=== PATIENT | female | born 1995 | race Caucasian/White ===

== ENCOUNTER 2023-11-11 22:31 | Emergency (ER) | payer OTHER, SELFPAY ==
[2023-11-11 22:37] VITALS: BP 115/76; PULSE 102; RESP 20; TEMP 36.5; O2SAT 100; BMI 35.0
--- NOTE | 2023-11-11 22:45 | ED_ITS ---
HPI - SOB/Dyspnea General Time Seen by Provider: 22:45 <Isela Bush MD - Last Filed: 11/12/23 00:02> Date Seen: 11/11/23 <Isela Bush MD - Last Filed: 11/12/23 00:02> Chief Complaint: Shortness of Breath/Dyspnea <Isela Bush MD - Last Filed: 11/12/23 00:02> Stated Complaint: Chest Pain/Shortness of breath <Isela Bush MD - Last Filed: 11/12/23 00:02> Time Seen by Provider: 11/11/23 22:32 <Isela Bush MD - Last Filed: 11/12/23 00:02> Source: patient and RN notes reviewed <Isela Bush MD - Last Filed: 11/12/23 00:02> Mode of arrival: ambulatory <Isela Bush MD - Last Filed: 11/12/23 00:02> Limitations: no limitations <Isela Bush MD - Last Filed: 11/12/23 00:02> History of Present Illness HPI Narrative: This 28-year-old female is coming in with shortness of breath and chest pressure. She noted maybe last Saturday, about 8 days ago started feeling short of breath. About a day later she started having some chest discomfort with it. There is a sense of pleuritic pain with deep breathing. She is getting winded sometimes even with just talking, certainly with any activity. She has woken up warm and sweaty almost every morning since this started, did have some of those symptoms prior to this however. No documented fever. She has had a little cough, does not think that she has had any upper respiratory infection. At the start of this, she thought she might be getting sick but then nothing more than the chest symptoms described happened. She feels more pressure on the chest lying flat, does get some relief sitting up. She is on a combined transdermal contraceptive. States there is no chance for . She does not have any history of blood clots prior. She did consult 2 facilities, all requested that she come to the ER for evaluation. <Isela Bush MD - Last Filed: 11/12/23 00:02> MD elicited complaint: shortness of breath and chest pain <Isela Bush MD - Last Filed: 11/12/23 00:02> Related Data Home Medications: Home Medications Medication Instructions Recorded Confirmed blood-glucose sensor (Dexcom G6 11/11/23 11/11/23 Sensor device) blood-glucose transmitter (Dexcom 11/11/23 11/11/23 G6 Transmitter device) clindamycin phosphate 1 % lotion topical 11/11/23 insulin lispro 100 unit/mL 0 - 50 unit subcut DAILY 11/11/23 11/11/23 subcutaneous solution insulin pump cart,automated,BT 11/11/23 11/11/23 (Omnipod 5 G6 Pods (Gen 5) subcutaneous cartridge) norelgestromin 150 mcg-e.estradiol 1 patch topical 11/11/23 35 mcg/24 hr weekly transderm patch (Zafemy) sulfacetamide sodium-sulfur 8 %-4 topical DAILY 11/11/23 % topical suspension tretinoin 0.05 % topical cream applic topical Q1D 11/11/23 <Isela Bush MD - Last Filed: 11/12/23 00:02> Allergies/Adverse Reactions: Allergies Allergy/AdvReac Type Severity Reaction Status Date / Time methylphenidate Allergy Intermediate Verified 11/11/23 22:35 [From Concerta] <Isela Bush MD - Last Filed: 11/12/23 00:02> Review of Systems Status of ROS: Reports: 6 or more systems reviewed and unremarkable except as noted in History and below <Isela Bush MD - Last Filed: 11/12/23 00:02> PFSH PFSH Social History: Social History Non-prescribed substance use: denies use <Isela Bush MD - Last Filed: 11/12/23 00:02> Exam Const: Vital Signs, click to edit/add: Vital Signs - 24 hr 11/11/23 22:37 11/11/23 23:13 11/11/23 23:15 Temperature 97.7 F Pulse Rate 99 Pulse Rate [Pulse Oximeter] 102 H Respiratory Rate 20 Blood Pressure 130/83 Blood Pressure [Ri ght Upper Arm] 115/76 Pulse Oximetry 100 99 Oxygen Delivery Me thod Room Air 11/11/23 23:29 Temperature Pulse Rate Pulse Rate [Pulse Oximeter] Respiratory Rate Blood Pressure Blood Pressure [Ri ght Upper Arm] Pulse Oximetry 96 Oxygen Delivery Me thod This 28-year-old female is alert, interactive, no apparent distress. Pupils equal round reactive, sclera clear, symmetrical facial function. Able to speak in complete sentences, no hoarseness. Neck is supple, no jugular vein dis tension, no cervical adenopathy, no thyromegaly masses or nodules. Lungs are clear, good air entry, no wheezing or crackles, no tachypnea. CV is slightly fast but regular, no murmur, normal S1-S2, no S3-S4. Abdomen is soft, nontender, no rebound or guarding, organomegaly. She has no lower extremity edema, no calf tenderness, was ambulatory into the ED of her own accord. Currently mildly tachycardic on presentation but absolutely no hypoxia, no elevated respiratory rate. <Isela Bush MD - Last Filed: 11/12/23 00:02> Vital Signs, click to edit/add: Vital Signs - 24 hr 11/11/23 22:37 11/11/23 23:13 11/11/23 23:15 Temperature 97.7 F Pulse Rate 99 Pulse Rate [Pulse Oximeter] 102 H Respiratory Rate 20 Blood Pressure 130/83 Blood Pressure [Ri ght Upper Arm] 115/76 Pulse Oximetry 100 99 Oxygen Delivery Me thod Room Air 11/11/23 23:29 Temperature Pulse Rate Pulse Rate [Pulse Oximeter] Respiratory Rate Blood Pressure Blood Pressure [Ri ght Upper Arm] Pulse Oximetry 96 Oxygen Delivery Me thod <Chris Romano DO - Last Filed: 11/12/23 01:08> Documenting provider has reviewed patient's vital signs: yes <Isela Bush MD - Last Filed: 11/12/23 00:02> Course Course ED Course: Have reviewed with Jorge Alberto that we certainly will look at her heart, it is doubtful that she is having any ischemic disease but will be considered. Pericarditis certainly is a possibility. Respiratory entities such as pulmonary emboli, possible underlying pulmonary infections are possible as well. Given that she is on a combined transdermal contraceptive, do need to proceed with CT imaging as she cannot rule out with PERC for pulmonary emboli do the contrace ptive use, mild tachycardia. Will get full complement of labs. She will be on cardiac monitoring pulse oximetry, will get baseline EKG as well. <Isela Bush MD - Last Filed: 11/12/23 00:02> Vital Signs Vital signs: Initial Vital Signs Temperature 97.7 F 11/11/23 22:37 Temperature Source Temporal Artery Scan 11/11/23 22:37 Pulse Rate 102 H 11/11/23 22:37 Respiratory Rate 20 11/11/23 22:37 Blood Pressure 115/76 11/11/23 22:37 Blood Pressure Mean 89 11/11/23 22:37 Blood Pressure Position Sitting 11/11/23 22:37 Pulse Oximetry 100 11/11/23 22:37 Oxygen Delivery Method Room Air 11/11/23 22:37 Vital Signs Temperature 97.7 F 11/11/23 22:37 Pulse Rate 102 H 11/11/23 22:37 Respiratory Rate 20 11/11/23 22:37 Blood Pressure 115/76 11/11/23 22:37 Pulse Oximetry 100 11/11/23 22:37 Oxygen Delivery Method Room Air 11/11/23 22:37 Temperature 97.7 F 11/11/23 22:37 Pulse Rate 99 11/11/23 23:13 Respiratory Rate 20 11/11/23 22:37 Blood Pressure 130/83 11/11/23 23:15 Pulse Oximetry 96 11/11/23 23:29 Oxygen Delivery Method Room Air 11/11/23 22:37 <Isela Bush MD - Last Filed: 11/12/23 00:02> Initial Vital Signs Temperature 97.7 F 11/11/23 22:37 Temperature Source Temporal Artery Scan 11/11/23 22:37 Pulse Rate 102 H 11/11/23 22:37 Respiratory Rate 20 11/11/23 22:37 Blood Pressure 115/76 11/11/23 22:37 Blood Pressure Mean 89 11/11/23 22:37 Blood Pressure Position Sitting 11/11/23 22:37 Pulse Oximetry 100 11/11/23 22:37 Oxygen Delivery Method Room Air 11/11/23 22:37 Vital Signs Temperature 97.7 F 11/11/23 22:37 Pulse Rate 102 H 11/11/23 22:37 Respiratory Rate 20 11/11/23 22:37 Blood Pressure 115/76 11/11/23 22:37 Pulse Oximetry 100 11/11/23 22:37 Oxygen Delivery Method Room Air 11/11/23 22:37 Temperature 97.7 F 11/11/23 22:37 Pulse Rate 99 11/11/23 23:13 Respiratory Rate 20 11/11/23 22:37 Blood Pressure 130/83 11/11/23 23:15 Pulse Oximetry 96 11/11/23 23:29 Oxygen Delivery Method Room Air 11/11/23 22:37 <Chris Romano DO - Last Filed: 11/12/23 01:08> MDM - SOB/Dyspnea MDM Narrative Medical decision making narrative: patient is a 28-year-old female presenting for chest pain shortness of breath the been going on for about 8 days who signed out to me pending CT scan. Her D-dimer was normal. CT scan of chest showed no acute abnormalities. His symptoms are doing well at this time and she is hoping to go home. I believe she is safe for discharge. she does states she has primary care to follow up with. I spoke to her about talking to her primary care provider about possibly getting an echocardiogram. She states she understands. <Chris Romano DO - Last Filed: 11/12/23 01:08> Lab Data Attestation: I reviewed the patient's lab results. <Isela Bush MD - Last Filed: 11/12/23 00:02> Labs: Lab Results 11/11/23 Range/Units 23:22 WBC 8.60 (4.50-11.00) K/uL RBC 4.49 (4.00-5.20) m/uL Hgb 13.6 (12.0-16.0) gm/dL Hct 39.8 (33.0-51.0) % MCV 89 (80-100) fL MCH 30 (26-34) pg MCHC 34 (32-36) gm/dL RDW Coeff of Fredy 11.8 (11.5-15.5) % Plt Count 368 (140-440) K/uL Neut % (Auto) 53.9 (42.0-72.0) % Lymph % (Auto) 37.7 (20-44) % [place] % (Auto) 6.7 (0.0-11.0) % Eos % (Auto) 0.9 (0.0-7.0) % Baso % (Auto) 0.3 (0.0-3.0) % Neut # (Auto) 4.63 (1.7-7.0) K/uL Lymph # (Auto) 3.24 H (0.90-2.90) K/uL [place] # (Auto) 0.60 (0.00-0.90) K/UL Eos # (Auto) 0.08 (0.00-0.50) K/uL Baso # (Auto) 0.03 (0.00-0.30) K/uL Abs Immat Gran (auto) 0.04 (0.00-0.30) K/uL Imm/Tot Granulo (auto) 0.5 % ESR 13 (2-20) mm/hr D-Dimer Quant (PE/DVT) 0.40 (0.00-0.50) ug/ml VBG pH 7.370 (7.32-7.43) VBG pCO2 49 (40-50) mmHG VBG pO2 23.3 L (25-47) mmHG VBG HCO3 28 (21-28) mmol/L Sodium 139 (135-149) mmol/L Potassium 3.5 L (3.6-5.1) mmol/L Chloride 103 (96-114) mmol/L Carbon Dioxide 27 (20-32) mmol/L Anion Gap 9 (7-15) mEq/L BUN 13 (5-24) mg/dL Creatinine 0.5 (0.5-1.5) mg/dL Estimated Creat Clear 128.66 Estimated GFR 133 ml/min Glucose 52 L (60-115) mg/dL Lactate 1.4 (0.5-1.9) mmol/L Calcium 9.4 (8.4-10.6) mg/dL Magnesium 1.9 (1.5-2.6) mg/dL Total Bilirubin 0.4 (0.1-1.5) mg/dL AST 20 (12-35) U/L ALT 22 (4-35) U/L Alkaline Phosphatase 95 (40-150) U/L Troponin I < 0.01 L (0.01-0.04) ng/mL C-Reactive Protein 1.5 H (0.5-1.0) mg/dL NT-Pro-B Natriuret Pep 161 pg/mL Total Protein 8.1 (6.0-8.3) g/dL Albumin 4.7 (3.3-5.0) g/dL <Isela Bush MD - Last Filed: 11/12/23 00:02> Lab Results 11/11/23 Range/Units 23:22 WBC 8.60 (4.50-11.00) K/uL RBC 4.49 (4.00-5.20) m/uL Hgb 13.6 (12.0-16.0) gm/dL Hct 39.8 (33.0-51.0) % MCV 89 (80-100) fL MCH 30 (26-34) pg MCHC 34 (32-36) gm/dL RDW Coeff of Fredy 11.8 (11.5-15.5) % Plt Count 368 (140-440) K/uL Neut % (Auto) 53.9 (42.0-72.0) % Lymph % (Auto) 37.7 (20-44) % [place] % (Auto) 6.7 (0.0-11.0) % Eos % (Auto) 0.9 (0.0-7.0) % Baso % (Auto) 0.3 (0.0-3.0) % Neut # (Auto) 4.63 (1.7-7.0) K/uL Lymph # (Auto) 3.24 H (0.90-2.90) K/uL [place] # (Auto) 0.60 (0.00-0.90) K/UL Eos # (Auto) 0.08 (0.00-0.50) K/uL Baso # (Auto) 0.03 (0.00-0.30) K/uL Abs Immat Gran (auto) 0.04 (0.00-0.30) K/uL Imm/Tot Granulo (auto) 0.5 % ESR 13 (2-20) mm/hr D-Dimer Quant (PE/DVT) 0.40 (0.00-0.50) ug/ml VBG pH 7.370 (7.32-7.43) VBG pCO2 49 (40-50) mmHG VBG pO2 23.3 L (25-47) mmHG VBG HCO3 28 (21-28) mmol/L Sodium 139 (135-149) mmol/L Potassium 3.5 L (3.6-5.1) mmol/L Chloride 103 (96-114) mmol/L Carbon Dioxide 27 (20-32) mmol/L Anion Gap 9 (7-15) mEq/L BUN 13 (5-24) mg/dL Creatinine 0.5 (0.5-1.5) mg/dL Estimated Creat Clear 128.66 Estimated GFR 133 ml/min Glucose 52 L (60-115) mg/dL Lactate 1.4 (0.5-1.9) mmol/L Calcium 9.4 (8.4-10.6) mg/dL Magnesium 1.9 (1.5-2.6) mg/dL Total Bilirubin 0.4 (0.1-1.5) mg/dL AST 20 (12-35) U/L ALT 22 (4-35) U/L Alkaline Phosphatase 95 (40-150) U/L Troponin I < 0.01 L (0.01-0.04) ng/mL C-Reactive Protein 1.5 H (0.5-1.0) mg/dL NT-Pro-B Natriuret Pep 161 pg/mL Total Protein 8.1 (6.0-8.3) g/dL Albumin 4.7 (3.3-5.0) g/dL <Chris Romano DO - Last Filed: 11/12/23 01:08> Imaging Data CT scan - chest: Radiologist's impression: No evidence of pulmonary embolism or acute intrathoracic abnormality. Please note that all CT scans at this facility use dose modulation, iterative reconstruction, and/or weight-based dosing when appropriate to reduce radiation dose to as low as reasonably achievable. Dictated by Ezra Ochoa MD @ 11/12/2023 1:01:21 AM <Chris Romano DO - Last Filed: 11/12/23 01:08> ECG Data Attestation: I personally reviewed and interpreted this ECG as follows: (Normal sinus rhythm flipped T-waves lead V1 and V3 without ST segment change. Nonspecific ST segment changes leads 2, AVF possible minimally V4 through V6.) <Isela Bush MD - Last Filed: 11/12/23 00:02> ECG interpretation date: 11/11/23 <Isela Bush MD - Last Filed: 11/12/23 00:02> ECG interpretation time: 23:40 <Isela Bush MD - Last Filed: 11/12/23 00:02> Discharge Plan Discharge Clinical Impression: Shortness of breath, Atypical chest pain <Isela Bush MD - Last Filed: 11/12/23 00:02> Patient Disposition: Home, Self-Care <Isela Bush MD - Last Filed: 11/12/23 00:02> Condition: Stable <Isela Bush MD - Last Filed: 11/12/23 00:02> Instructions: Noncardiac Chest Pain (ED) <Isela Bush MD - Last Filed: 11/12/23 00:02> Additional Instructions: while it is not clear what is cause any symptoms at this time I do believe he is safe for you to be discharged home. I do recommend you follow up with the primary care provider about possibly getting an echocardiogram To evaluate your heart. Return for new or worsening symptoms <Isela Bush MD - Last Filed: 11/12/23 00:02> Prescriptions: No Action tretinoin 0.05 % cream topical Q1D insulin lispro 100 unit/mL solution 0 - 50 unit subcut DAILY clindamycin phosphate 1 % lotion topical Zafemy 150-35 mcg/24 hr patch weekly 1 patch topical (DME) Dexcom G6 Sensor Device MISCELLANEOUS Q10D (DME) Dexcom G6 Transmitter Device MISCELLANEOUS [id number] sulfacetamide sodium-sulfur 8-4 % suspension topical DAILY (DME) Omnipod 5 G6 Pods (Gen 5) Cartridge subcut Q3D <Isela Bush MD - Last Filed: 11/12/23 00:02> Follow Up/Referrals: Provider,Not a Local [Primary Care Provider] - <Isela Bush MD - Last Filed: 11/12/23 00:02> Stand Alone Forms: My[facility] Info Instructions <Isela Bush MD - Last Filed: 11/12/23 00:02>
--- NOTE | 2023-11-11 22:56 | CRLHL7_ITS ---
For Patients: As a result of the Century Cures Act, medical imaging exams and procedure reports are released immediately into your electronic medical record. You may view this report before your referring provider. If you have questions, please contact your health care provider. INDICATION: Shortness of breath, tachycardia, chest pain. TECHNIQUE: CT chest PE was acquired with 95 cc Isovue 370 IV contrast. COMPARISON: None. FINDINGS: Heart and vasculature: Contrast opacification of the pulmonary arterial tree is adequate. No sign of pulmonary embolism. Heart size is normal. Thoracic aorta and pulmonary artery are normal in caliber. Lungs and pleura: Lungs and pleural spaces are clear. No suspicious nodules or infiltrates. No pleural effusions, pleural thickening, or pneumothorax. Lymph nodes/mediastinum: No mediastinal, hilar, or axillary adenopathy. Thyroid gland is unremarkable. Chest wall: No masses. Upper abdomen: No acute or significant findings. Bones: Unremarkable for age. IMPRESSION: No evidence of pulmonary embolism or acute intrathoracic abnormality. Please note that all CT scans at this facility use dose modulation, iterative reconstruction, and/or weight-based dosing when appropriate to reduce radiation dose to as low as reasonably achievable. Dictated by Ezra Ochoa MD @ 11/12/2023 1:01:21 AM (Electronically Signed)
[2023-11-11 23:13] VITALS: PULSE 99; O2SAT 99
[2023-11-11 23:15] VITALS: BP 130/83
[2023-11-11 23:27] LABS: HCO3 VBG 28 mmol/L (21-28); PCO2 VBG 49 mmHG (40-50); PO2 VBG 23.3 mmHG (25-47)
[2023-11-11 23:28] LABS: Lactate* 1.4 mmol/L (0.5-1.9)
[2023-11-11 23:29] VITALS: O2SAT 96
[2023-11-11 23:29] LABS: Basophils Absolute Auto 0.03 K/uL (0.00-0.30); Basophils Percent Auto 0.3 % (0.0-3.0); Eosinophils Absolute Auto 0.08 K/uL (0.00-0.50); Eosinophils Percent Auto 0.9 % (0.0-7.0); Hematocrit 39.8 % (33.0-51.0); Hemoglobin* 13.6 gm/dL (12.0-16.0); Immature Granulocytes Abs Auto 0.04 K/uL (0.00-0.30); Immature Granulocytes Pct Auto 0.5 %; Lymphocytes Absolute Auto 3.24 K/uL (0.90-2.90); Lymphocytes Percent Auto 37.7 % (20-44); Mean Corpuscular HGB Conc 34 gm/dL (32-36); Mean Corpuscular Hemoglobin 30 pg (26-34); Mean Corpuscular Volume 89 fL (80-100); Monocytes Percent Auto 6.7 % (0.0-11.0); Neutrophils Absolute Auto 4.63 K/uL (1.7-7.0); Neutrophils Percent Auto 53.9 % (42.0-72.0); Platelet Count* 368 K/uL (140-440); RDW Coefficient of Variation % 11.8 % (11.5-15.5); Red Blood Count 4.49 m/uL (4.00-5.20)
[2023-11-11 23:42] LABS: Albumin* 4.7 g/dL (3.3-5.0); Chloride* 103 mmol/L (96-114)
[2023-11-11 23:43] LABS: Potassium* 3.5 mmol/L (3.6-5.1); Sodium* 139 mmol/L (135-149)
[2023-11-11 23:44] LABS: Slide Review Reflex No
[2023-11-11 23:45] LABS: Bilirubin Total* 0.4 mg/dL (0.1-1.5); Creatinine* 0.5 mg/dL (0.5-1.5); Est. Creatinine Clearance* 128.66; Estimated Glomerular Filt Rate 133 ml/min
[2023-11-11 23:46] LABS: Alanine Aminotransferase* 22 U/L (4-35); Alkaline Phosphatase* 95 U/L (40-150); Anion Gap 9 mEq/L (7-15); Aspartate Amino Transferase* 20 U/L (12-35); Blood Urea Nitrogen* 13 mg/dL (5-24); Carbon Dioxide* 27 mmol/L (20-32); Glucose* 52 mg/dL (60-115); Total Protein* 8.1 g/dL (6.0-8.3)
[2023-11-11 23:47] LABS: Calcium* 9.4 mg/dL (8.4-10.6); Magnesium* 1.9 mg/dL (1.5-2.6)
[2023-11-11 23:49] LABS: C Reactive Protein* 1.5 mg/dL (0.5-1.0)
[2023-11-11 23:56] LABS: NT Pro B Type NatriureticPept* 161 pg/mL
[2023-11-11 23:59] LABS: Troponin I* < 0.01 ng/mL (0.01-0.04)
[2023-11-12 00:06] LABS: Erythrocyte SedimentationRate* 13 mm/hr (2-20)
[2023-11-12 01:09] VITALS: BP 122/83; PULSE 86; RESP 18
== END 2023-11-12 01:12 | disposition home or self-care (01) ==
PROVIDERS: Emergency Provider Family Medicine
DX: R07.9 Chest pain, unspecified (principal); R06.02 Shortness of breath
CPT/HCPCS: 36415; 71275; 80053; 82803; 83605; 83735; 83880; 84484; 85025; 85379; 85651; 86140; 93005; 94761; 99283; 99284; 99285; Q9967

== ENCOUNTER 2025-05-31 16:55 | Emergency (ER) | payer OTHER, SELFPAY ==
--- OUTSIDE RECORDS SUMMARY | 2025-05-31 16:58 | XMS_ITS | Clinical Summary ---
Author Organization [facility] Address [address] [place] [id number] Care Team Providers Care Asphalt Paver Operator Name Role Phone Adriane Smart MD Primary Care Provider [phone] Britany Roth RN Unavailable [phone] Allergies Active Allergy Reactions Criticality Noted Date Comments Methylphenidate Analogues Rash 08/25/2008 Duloxetine Nausea And Vomiting 11/21/2020 Methylphenidate Rash Low 08/10/2020 Medications blood sugar diagnostic stripIndications:D iabetic ketoacidosis without coma associated with type 1 diabetes mellitus (HC) Dispense item covered by pt ins. E10.9 IDDM type I - Test 4 times/day. Reason: New diabetes 250 Strip 1 06/25/20 20 Active pen needle, diabetic (BD Insulin Pen Needle UF) 31 gauge x 5/16Indications:D iabetic ketoacidosis without coma associated with type 1 diabetes mellitus (HC) USE TO INJECT 6-7 TIMES DAILY 600 Each 3 01/27/20 22 Active insulin pump cart,auto,BT-cntr (Omnipod 5 G6 Intro Kit, Gen 5,) crtgIndications:Ty pe 1 diabetes mellitus without complication (HC) Inject subcutaneous. 1 Each 03/20/20 22 Active clindamycin 1% (CLEOCIN-T) 1 % lotion APPLY THIN LAYER TO AFFECTED AREA ON FACE AND BACK 1-2X DAILY 04/09/20 23 Active sulfacetamide sodium-sulfur (SUMAXIN) 8-4 % suspension WASH FACE CHEST AND BACK ONCE DAILY LATHER AND LET SIT FOR SEVERAL MINUTES BEFORE RINSING 04/09/20 23 Active tretinoin 0.05 % 0.05 % cream APPLY THIN LAYER TO FACE, CHEST AND BACK EVERY OTHER NIGHT INCREASING TO NIGHTLY TOLERATED. MOISTURIZE AFTER 04/09/20 23 Active ethinyl estradiol-norelges trom (Zafemy) 150-35 mcg/24 hr patchIndications:E ncounter for counseling regarding contraception Apply 1 Patch on dry, clean, hairless skin once weekly. 9 Patch 2 05/30/20 24 Active ketorolac (TORADOL) 10 mg tablet Take 10 mg by mouth every 6 hours if needed for Pain. 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 UP TO 70 UNITS DAILY 90 mL 3 06/30/20 24 Active phentermine (ADIPEX-P) 37.5 mg tabletIndications: Class 1 obesity with serious comorbidity and body mass index (BMI) of 31.0 to 31.9 in adult, unspecified obesity type Take 1 Tablet (37.5 mg) by mouth once daily before a meal. 30 Tablet 2 11/02/20 24 Active Additional Information Patient not taking.Reported on 05/04/2025 statistical technician (Dexcom G7 Power Washer) for continuous blood glucose monitor (CGM)Indications:T ype 1 diabetes mellitus with proliferative retinopathy of both eyes and macular edema (HC) This is for the glucose VIRTUAL ASSISTANT , also order the sensors. 1 Each 11/02/20 24 Active sensor (Dexcom G7 Sensor) for continuous blood glucose monitor (CGM)Indications:T ype 1 diabetes mellitus with proliferative retinopathy of both eyes and macular edema (HC) To be used to read blood sugars, change sensor every 10 days. This is for the glucose SENSOR, also order the statistical technician. 9 Each 3 11/02/20 24 Active albuterol HFA (PRO-AIR; VENTOLIN; PROVENTIL) 90 mcg/actuation inhalerIndications :SOB (shortness of breath),Acute cough Inhale 1-2 Puffs by mouth every 4 hours if needed for Shortness Of Breath or Wheezing. 1 Each 11/07/19 25 Active ondansetron (ZOFRAN ODT) 4 mg disintegrating tabletIndications: Nausea and vomiting, unspecified vomiting type Place 1 Tablet (4 mg) on the tongue every 8 hours if needed for Nausea/Vomitin g. 15 Tablet 11/07/19 25 Active glucagon (Baqsimi) 3 mg/actuation nasal sprayIndications:p atient with diabetes mellitus at risk of hypoglycemia Inhale 1 Glenn into affected nostril(s) each time if needed for Severe Hypoglycemia. Roll on side and call 911 after administration . 2 Each 12/08/19 25 Active acetone, urine, test (Ketone Urine Test) stripIndications:T ype 1 diabetes mellitus without complication (HC) As directed 2 times daily if needed (for hypogycemia). For personal use. 50 Each 12/10/19 25 Active insulin pump pods (OMNIPOD 5 DexcomG6-G7) (Omnipod 5 G6-G7 Pods (Gen 5))Indications:Typ e 1 diabetes mellitus with proliferative retinopathy of both eyes and macular edema (HC) CHANGE POD EVERY 3 DAYS. 30 Each 04/12/20 25 Active transmitter (Dexcom G6 Transmitter) for continuous blood glucose monitor (CGM)Indications:T ype 1 diabetes mellitus without complication (HC) CHANGE TRANSMITTER EVERY 3 MONTHS 1 Each 11/16/19 25 025 Discontinu ed(*Med complete/R egimen complete/L evel of care change) sensor (Dexcom G6 Sensor) for continuous blood glucose monitor (CGM)Indications:T ype 1 diabetes mellitus with proliferative retinopathy of both eyes and macular edema (HC) Change each sensor every 10 days 9 Each 3 11/16/19 25 025 Discontinu ed(*Med complete/R egimen complete/L evel of care change) phenazopyridine 200 mg tabletIndications: Dysuria Take 1 Tablet (200 mg) by mouth three times daily after meals for 2 days. 6 Tablet 05/04/20 25 025 cephalexin 500 mg capsuleIndications :UTI (urinary tract infection), uncomplicated Take 1 Capsule (500 mg) by mouth two times daily for 7 days. 14 Capsule 05/06/20 25 025 Hospital, Clinic, or Other Facility Administered Medication Ordered Dose Route Frequency Start Date End Date Status etonogestrel subdermal implant (NEXPLANON) 1 EachIndications:Nexpl anon insertion 1 Each Sdrm Q 3 YEARS 12/19/2021 05/04/2025 Discontinu ed Active Problems Problem Noted Date Diagnosed Date Type 1 diabetes mellitus wit h proliferative retinopathy of both eyes and macular edema 06/24/2020 Overview (11/21/2020): HbA1c 16.4% at diagnosis 06/2020 Anxiety 08/25/2018 Attention deficit disorder with hyperactivity(31 4.01) Resolved Problems Problem Noted Date Diagnosed Date Resolved Date Hyperglycemia without ketosis 04/16/2023 04/24/2023 Insulin pump mechanical complication 04/16/2023 04/24/2023 Pap smear for cervical cancer screening 12/05/2021 06/20/2022 Overview (01/19/2022): 12/2021 NIL/HPV negative. Plan:Pap/HPV due 12/2024 DKA (diabetic ketoacidoses) 06/24/2020 10/03/2020 COVID-19 virus infection 03/29/2020 Concussion 02/18/2014 12/12/2022 Routine or child health check 01/12/2008 06/24/2020 Encounters Date Type Department Care Team Description 05/06/[address] [phone] Zeinab Gee, DO Medication Management (antibiotics/) 05/04/2025 11:25 AM CDT Office Visit [address] [phone] Zeinab Gee DO Urinary Problem 05/04/2025 Travel 04/09/[address] [phone] Adriane Smart MD Refill Request (Omnipod 5 G6-g7 Pods (Gen 5)) from Last 3 Months Immunizations Immunization Administration Dates Next Due AMB Influenza, IIV3 (Age >=3 years) Preserve Free (Flu Clinic Only) 08/22/2013 COVID-19 VACCINE SPIKEVAX (M ODERNA 50MCG/0.5ML) 12YO+ PFS 12/26/2023 COVID-19 vaccine (Moderna 100mcg/0.5mL) PF, MDV 01/14/2021,12/16/2020 COVID-19 vaccine (Pfizer-Bio NTech 30mcg/0.3mL) 12YO+ BIVALENT PF, MDV 12/12/2022 DTaP 05/26/2009, 2,05/19/1998,08/05,1997,1997 Hepatitis B (Peds) 1997,1997, 997 Human Papilloma Virus Vaccine 05/26/2009, 009,08/25/2008 03/18/2009 Inactivated Polio Vaccine 03/06/2002,,1997,04/05 Influenza RIV4 (Age 18+ Year s) PRESERV FREE 10/08/2021 Influenza Virus, Unspecified 08/04/2020,10/07/20 08 Influenza, IIV3 (Age >=3 years) 07/16/20 15,07/31/2012,07/27/2011,02/2008 Influenza, IIV4 12/26/2023,,07/22/2019,01/2018,06/26/2017,08/10/2016,10/08/20 14 MENINGOCOCCAL VACCINE 2 VIAL 2MO-55YO (MENVEO) 10/08/2014 MMR 03/06/2002,05/19/1998 Td (Age >=7 Years) 1997 Tdap 06/26/2017,05/26/2009 Varicella Vaccine 12/08/2009,1998 Family History Medical History Relation Name Comments Unknown Father Diabetes Maternal Grandmother Hypertension Maternal Grandmother Good Health Mother Migraines Mother Relation Name Status Comments Father Alive Maternal Grandmother Mother Alive Social History Tobacco Use Types Packs/Day Years Used Date Smoking Tobacco: Never Passive Smoke Exposure: Never Smokeless Tobacco: Never Tobacco Cessation:Counseling Given: Not Answered Alcohol Use Standard Drinks/Week Comments Not Currently 0 (1 standard drink = 0.6 oz pur e alcohol) Rarely PHQ-2 Answer Date Recorded PHQ-2 TOTAL SCORE 0 06/26/2024 Social Connections Answer Date Recorded Do you often feel lonely or isolated from those around you? 0 05/04/2025 Financial Resource Strain Answer Date R ecorded Difficulty of Paying Living Expenses 2 05/04/2025 Difficulty of Paying Living Expenses 1 05/04/2025 Food Insecurity Answer Date Recorded Do you worry your food will run out before you are able to buy more? 1 05/04/2025 Transportation Needs Answer Date Record ed Does lack of transportation keep you from medica l appointments? 1 05/04/2025 Does lack of transportation keep you from work, meetings or getting things that you need? 1 05/04/2025 Housing Stability Answer Date Recorded What is your housing situation today? 1 05/04/2025 Interpersonal Safety Answer Date Record ed Are you being hit, kicked, p ushed or yelled at (see row info)? No 05/23/2024 Interpersonal Safety Abuse 12 - 18 Not on file 05/23/2024 Interpersonal Safety Ambulatory Vulnerability No t on file 05/23/2024 Utilities Answer Date Recorded Do you have trouble paying f or utilities (for example, heat, electricity, water, phone)? 1 05/04/2025 Comments No Sex and Gender Information Value Date Recorded Sex Assigned at Not on file Legal Sex Female 5:46 AM SQUEEGEE FINISHER Gender Identity Not on file Sexual Orientation Not on file Occupation Industry Job Start Date Job End Date [employer] Not on file Not on file Not on file Obstetrics History Para Term AB IAB SAB Ectopic Multiple Livin g Live Births 1 1 1 Date Outcome GA Total Labor Labor/2nd/3rd Weight Sex Type Anes PTL Lety A1 A5 Name Clin SAB Last Filed Vital Signs Vital Sign Reading Time Taken Comments Blood Pressure 130/70 05/04/2025 11:36 AM CDT Pulse 100 05/04/2025 11:36 AM CDT Temperature 36.8 C (98.2 F) 11/07/2024 9:17 AM SQUEEGEE FINISHER Respiratory Rate 20 11/07/2024 10:47 AM SQUEEGEE FINISHER Oxygen Saturation 98% 05/04/2025 11:36 AM CDT Inhaled Oxygen Concentration - - Weight 84 kg (185 lb 1.6 oz) 05/04/2025 11:36 AM CDT Height 159.4 cm (5' 2.75) 11/02/2024 10:[address] Body Mass Index 33.05 11/02/2024 10:34 AM SQUEEGEE FINISHER Plan of Treatment Health Maintenance Due Date Last Done Comments Hepatitis C screening for ag e 18-79 2015 Pneumococcal series for age 6-49 (1 of 2 - PCV) 02/23/2016 COVID-19 vaccine series ( season) 2024 12/26/2023, 12/12/2022, 11/11/2021, Additional history exists Pap test for age 21-65 12/18/2024 , 12/18/2021, 08/25/2018 Depression screening for age 12+ 06/26/2025 06/26/2024, 04/24/2023, 06/20/2022, Additional history exists Influenza Vaccine (#1) 2025 , 12/12/2022, 10/08/2021, Additional history exists BMI (ht and wt on same day) for age 18+ 11/02/2025 11/02/2024, 03/03/2024, 12/26/2023, Additional history exists Tetanus booster 06/26/2027 06/26/2017, 05/05, 1997 Hepatitis B series for 19+ Completed 08/25, 1997, 1997 HIV for age 15-65 Completed 03/03/2024 Procedures Procedure Name Priority Date/Time Associated Diagnosis Comments URINALYSIS MICROSCOPIC STAT 05/04/2025 11:47 AM CDT Dysuria URINE CULTURE STAT 05/04/2025 11:47 AM CDT Dysuria UA W/ SEDIMENT EXAM REFLEXED PER CRITERIA STAT 05/04/2025 11:47 AM CDT Dysuria ANTI HIV 1/2 Add On 03/03/2024 9:30 AM CDT Screening for HIV (human immunodeficiency virus) HPV HIGH RISK Routine 12/18/2021 11:10 AM SQUEEGEE FINISHER Screening for cervical cancer from Last 3 Months or Most Recently Relevant to Health Maintenance Results * (ABNORMAL) URINALYSIS MICROSCOPIC (05/04/2025 11:47 AM CDT) RBC None Seen 0-2, None Seen /HPF 05/04/2025 12:02 PM CDT [facility] WBC 6-10(A) 0-2, 3-5, None Seen /HPF 05/04/2025 12:02 PM CDT [facility] BACTERIA Many(A) None Seen, Rare, Few Bacteria/ HPF 05/04/2025 12:02 PM CDT [facility] EPITHELIAL CELLS Few None Seen, Few Epi/HPF 05/04/2025 12:02 PM CDT [facility] Mucus Present 05/04/2025 12:02 PM CDT [facility] Urine URINE SPECIMEN / Unknown Non-Blood / Unknown 05/04/2025 11:47 AM CDT 05/04/2025 11:48 AM CDT Zeinab Gee DO URINE Final Result [facility] [address] [place] [address] * (ABNORMAL) URINE CULTURE [95739.2] - STAT (05/04/2025 11:47 AM CDT) CULTURE RESULT(A) 05/06/2025 2:45 PM CDT [facility] CULTURE >100,000 CFU/mL Staphylococcus coagulase negative 05/06/2025 2:45 PM CDT [facility] CULTURE <10,000 CFU/mL Multiple organisms probable contaminants 05/06/2025 2:45 PM CDT [facility] Urine URINE SPECIMEN / Unknown Non-Blood / Unknown 05/04/2025 11:47 AM CDT 05/04/2025 11:48 AM CDT Zeinab Gee DO MICROBIOLOGY Final Result [facility] [address] [place] [address], [place] * (ABNORMAL) UA W/ SEDIMENT EXAM REFLEXED PER CRITERIA [38533.2] - STAT (05/04/2025 11:47 AM CDT) COLOR Yellow Yellow Color 05/04/2025 12:00 PM [facility] CLARITY Cloudy(A) Clear Clarity 05/04/2025 12:00 PM [facility] SPECIFIC GRAVITY,URINE 1.020 1.010, 1.015, 1.020, 1.025 05/04/2025 12:00 PM [facility] PH,URINE 6.0 6.0, 7.0, 8.0, 5.5, 6.5, 7.5, 8.5 05/04/2025 12:00 PM [facility] UROBILINOGEN, QUALITATIVE Normal Normal EU/dl 05/04/2025 12:00 PM [facility] PROTEIN, URINE Negative Negative mg/dL 05/04/2025 12:00 PM [facility] GLUCOSE, URINE 500(A) Negative mg/dL 05/04/2025 12:00 PM [facility] KETONES,URINE Negative Negative mg/dL 05/04/2025 12:00 PM [facility] BILIRUBIN,URI NE Negative Negative 05/04/2025 12:00 PM [facility] OCCULT BLOOD,URINE Trace(A) Negative 05/04/2025 12:00 PM [facility] NITRITE Negative Negative 05/04/2025 12:00 PM [facility] LEUKOCYTE ESTERASE Small(A) Negative 05/04/2025 12:00 PM [facility] Urine URINE SPECIMEN / Unknown Non-Blood / Unknown 05/04/2025 11:47 AM CDT 05/04/2025 11:48 AM CDT Vonda Gerth DO URINE Final Result [facility] [address] [place] [address] * ANTI HIV 1/2 (03/03/2024 9:30 AM CDT) HIV-1/HIV-2 SCREEN Non-Reacti ve Non-Reacti ve 03/03/2024 10:45 PM CDT [facility] Comment:HIV-1 p24 and HIV-1/ HIV-2 Ab Not Detected. Blood BLOOD SPECIMEN / Unknown Butterfly / Unknown 03/03/2024 9:30 AM CDT 03/03/2024 9:30 AM CDT Adriane Smart MD SEND OUTS Final Res ult Performing Organization Address [facility]/ZIP Co de Phone Number [facility] [address] [place] [address], * HPV HIGH RISK (12/18/2021 11:10 AM SQUEEGEE FINISHER) TYPE 16 Negative Negative 12/20/2021 12:04 PM SQUEEGEE FINISHER [facility] TYPE 18 Negative Negative 12/20/2021 12:04 PM SQUEEGEE FINISHER [facility] OTHER HIGH RISK TYPES Negative Negative 12/20/2021 12:04 PM SQUEEGEE FINISHER [facility] Other (Cervical) Non-Blood / Unknown 12/18/2021 11:10 AM SQUEEGEE FINISHER 12/19/2021 8:08 AM SQUEEGEE FINISHER Narrative [facility] - 12/20/2021 12:04 PM SQUEEGEE FINISHER HPV types 16, 18, 31, 33, 35, 39, 45, 51, 52, 56, 58, 59, 66 and 68 DNA were undetectable or below the pre-set threshold. Methodology: [employer] 4800 HPV Test Adriane Smart MD MICROBIOLOGY Final Res ult [facility] [address] [place] [address], from Last 3 Months or Most Recently Relevant to Health Maintenance Insurance FOR [employer] [id number] [place] [id number] CIGNA HP [employer] [place] [employer] FOR LIFE [employer] [facility] [employer]VANT[facility] [id number] [place], [place] [id number] [facility] Advance Directives * Full Code (Latest Code Status on File) Date Activated Date Inactivated Comments 04/16/2023 9:59 AM 04/18/2023 1:32 PM Question Answer Comments Code Status Discussion: Reviewed Preferences * Full Code Date Activated Date Inactivated Comments 04/16/2023 1:14 AM 04/16/2023 9:59 AM Question Answer Comments Code Status Discussion: Unable to Assess Preferences, Provider to review later * Full Code Date Activated Date Inactivated Comments 06/24/2020 11:09 PM 06/25/2020 2:54 PM Question Answer Comments Code Status Discussion: Discussed Care Teams Asphalt Paver Operator Relationship Specialty Start Date End Date Adirane Smart MD [address] [place] [address] PCP - General Internal Medicine 06/29/20 Britany Roth RN [address] [place] [address] Sleeve Separator 07/12/20
[2025-05-31 16:59] VITALS: BP 147/99; PULSE 101; RESP 16; TEMP 36.6; O2SAT 98; BMI 34.6
== END 2025-05-31 19:03 | disposition left against medical advice (07) ==
LOC: ED 19:00
DX: Z53.21 Procedure and treatment not carried out due to patient leaving prior to being seen by health care provider (principal)